=== PATIENT | female | born 1980 | race Caucasian/White ===

== ENCOUNTER → 2018-04-21 | Outpatient (CLI) | payer MEDICAID ==
--- NOTE | 2018-04-21 14:13 | MM ---
Reason for exam: screening (asymptomatic). Baseline mammogram. Physical Findings: Nurse did not find any significant physical abnormalities on exam. MG 3D Screening Mammo W/Cad Bilateral CC and MLO view(s) were taken. The breast tissue is heterogeneously dense. This may lower the sensitivity of mammography. Finding: There is a equal spiculated architectural distortion located 3.4cm from the nipple in the anterior position of the left breast on CC view. These results were verbally communicated with the patient and result sheet given to the patient on 04/21/18. ASSESSMENT: Incomplete: need additional imaging evaluation, BI-RAD 0 RECOMMENDATION: Special view mammogram of the left breast.
--- NOTE | 2018-04-21 14:18 | MM ---
Reason for exam: additional evaluation requested from abnormal screening. Physical Findings: Breast exam preformed at baseline screening. MG 3D Work Up W/Cad LT Spot compression CC and ML view(s) were taken of the left breast. The breast tissue is heterogeneously dense. This may lower the sensitivity of mammography. There is no discrete abnormality on compression or ML view. These results were verbally communicated with the patient and result sheet given to the patient on 04/21/18. ASSESSMENT: Probably benign, BI-RAD 3 RECOMMENDATION: Follow-up diagnostic mammogram of the left breast in 6 months.
== END | disposition home or self-care (01) ==
LOC: RADMAMWWP 12:54
PROVIDERS: ATTEND Internal Medicine Geriatric Medicine
DX: Z12.31 Encounter for screening mammogram for malignant neoplasm of breast (principal); R92.8 Other abnormal and inconclusive findings on diagnostic imaging of breast
CPT/HCPCS: 77061; 77063; 77065; 77067

== ENCOUNTER → 2018-11-16 | Outpatient (CLI) | payer MEDICAID ==
--- NOTE | 2018-11-16 09:33 | MM ---
Reason for exam: additional evaluation requested from prior study. Last mammogram was performed 7 months ago. Physical Findings: Nurse did not find any significant physical abnormalities on exam. MG 3D Diag Mammo W/Cad LT CC and MLO view(s) were taken of the left breast. Prior study comparison: April 21, 2018, left breast MG 3d work up w/cad LT. April 21, 2018, bilateral MG 3d screening mammo w/cad. The breast tissue is heterogeneously dense. This may lower the sensitivity of mammography. The previously seen abnormality resolves on additional views and appears as fibroglandular tissue compatible with summation on the left breast. No suspicious abnormality. These results were verbally communicated with the patient and result sheet given to the patient on 11/16/18. ASSESSMENT: Benign, BI-RAD 2 RECOMMENDATION: Return to routine screening mammogram schedule for both breasts. Back on schedule for March 2019.
== END | disposition home or self-care (01) ==
LOC: RADMAMWWP 08:08
PROVIDERS: ATTEND Internal Medicine
DX: R92.8 Other abnormal and inconclusive findings on diagnostic imaging of breast (principal)
CPT/HCPCS: 77061; 77065

== ENCOUNTER → 2020-09-05 | Outpatient (CLI) | payer MEDICAID ==
--- NOTE | 2020-09-05 16:21 | CT ---
EXAMINATION TYPE: CT iac wo con DATE OF EXAM: 09/05/2020 COMPARISON: None HISTORY: hearing loss, Mastoiditis CT DLP: 150mGycm Automated exposure control for dose reduction was used. Helical imaging obtained through the internal auditory canals FINDINGS: Lack of contrast to evaluate the internal auditory canals. The external auditory canals are patent bilaterally. Mastoid air cells show no evidence of abnormal opacification bilaterally. The middle ear ossicles are symmetric and unremarkable. There is no evidence of suspicious surrounding s oft tissue density to suggest cholesteatoma. The scutum is preserved bilaterally. The cochlea and t he semicircular canals are symmetric and unremarkable. Vestibular aqueduct and internal carotid miah l appear unremarkable. Temporomandibular joints are maintained bilaterally. Minimal inflammatory ch arlette noted in the dependent portions of the maxillary sinuses, there is mucoperiosteal thickening pre sent in the maxillary sinuses, uyen bullosa present on the right. Possible periapical abscess noted in the right maxilla, coronal image #22, axial image 19 IMPRESSION: No significant abnormality seen to account for patient's symptoms, noncontrast exam. Per iapical abscess suspected in the right maxilla.
== END | disposition home or self-care (01) ==
LOC: RADCTMAIN 12:19
PROVIDERS: ATTEND Otolaryngology
DX: H91.90 Unspecified hearing loss, unspecified ear (principal); K04.7 Periapical abscess without sinus
CPT/HCPCS: 70480

== ENCOUNTER → 2020-11-08 | Outpatient (CLI) | payer MEDICAID ==
--- NOTE | 2020-11-10 10:22 | MM ---
Reason for exam: screening (asymptomatic). Last mammogram was performed 2 years ago. History: Took hormonal contraceptives beginning at age 38. Physical Findings: A clinical breast exam by your physician is recommended on an annual basis and results should be correlated with mammographic findings. MG 3D Screening Mammo W/Cad Bilateral CC and MLO view(s) were taken. Prior study comparison: November 16, 2018, left breast MG 3d diag mammo w/cad LT. April 21, 2018, left breast MG 3d work up w/cad LT. The breast tissue is almost entirely fat. Asymmetric breast tissue in right posterior CC view, 13cm from nipple. ASSESSMENT: Incomplete: need additional imaging evaluation, BI-RAD 0 RECOMMENDATION: Special view mammogram of the right breast. If lesion persists on supplemental views, image directed ultrasound is recommended. [facility] will attempt to contact patient to return for supplemental views and ultrasound if indicated.
== END | disposition home or self-care (01) ==
LOC: RADMAMWWP 16:00
PROVIDERS: ATTEND Family Medicine
DX: Z12.31 Encounter for screening mammogram for malignant neoplasm of breast (principal)
CPT/HCPCS: 77063; 77067

== ENCOUNTER 2020-11-09 06:20 | Day surgery (SDC) | payer MEDICAID ==
[2020-11-08 10:12] VITALS: BMI 42.1
[~2020-11-09 06:20] MED LIST: DEXAMETHASONE SOD PHOSPHATE 4 MG/ML 1 ML VIAL IV PRN; FAMOTIDINE 20 MG/2 ML VIAL IV PRN; ONDANSETRON 4 MG/2 ML VIAL IVP PRN; OXYMETAZOLINE 0.05% NASL SPRAY 1 SPRAY BOTTLE EA NOSTRIL PRN
[2020-11-09] MEDS ORDERED: DEXAMETHASONE SOD PHOSPHATE 4 MG/ML 1 ML VIAL IV ONE (06:40)
[2020-11-09] MEDS ORDERED: LACTATED RINGERS 1,000 ML IV SCH (06:40)
[2020-11-09] MEDS ORDERED: LIDOCAINE 1% (10MG/ML) FOR IV START INTRADERMA PRN (06:40)
[2020-11-09] MEDS ORDERED: MIDAZOLAM 2 MG/2 ML VIAL IV PRN (06:40)
[2020-11-09] MEDS ORDERED: ONDANSETRON 4 MG/2 ML VIAL IVP ONE (06:40)
[2020-11-09 07:23] LABS: Glucose,Whole Blood 95 mg/dL (75-99)
[2020-11-09] MEDS ORDERED: MIDAZOLAM 2 MG/2 ML VIAL ONE (07:28)
[2020-11-09] MEDS ORDERED: fentaNYL (PF) 50 MCG/ML 2 ML AMP ONE (07:28)
[2020-11-09] MEDS ORDERED: SUCCINYLCHOLINE CHLORIDE VIAL 200 MG/10 ML VIAL IV ONE (07:28)
[2020-11-09] MEDS ORDERED: LIDOCAINE 1% INJ 10MG/ML (20 ML MDV) ONE (07:28)
[2020-11-09] MEDS ORDERED: PROPOFOL 10 MG/ML 20 ML VIAL IV ONE (07:28)
[2020-11-09 07:34] LABS: African American GFR (CKD) >90 (>60 ml/min/1.73 sqM); Anion Gap 2 mmol/L; Blood Urea Nitrogen 14 mg/dL (7-17); Calcium 8.8 mg/dL (8.4-10.2); Carbon Dioxide 29 mmol/L (22-30); Chloride 110 mmol/L (98-107); Glucose 102 mg/dL (74-99); Non-African American GFR(CKD) 80 (>60 ml/min/1.73 sqM); Potassium 3.7 mmol/L (3.5-5.1); Sodium 141 mmol/L (137-145)
[2020-11-09] MEDS ORDERED: LIDOCAINE 1%-EPI 1:100,000 20 ML VIAL SQ ONE ×2 (07:56)
[2020-11-09] MEDS ORDERED: CIPROFLOXACIN-DEXAMETH 0.3-0.1% DROPS 7.5 ML BTL BOTH EARS ONE (08:05)
[2020-11-09 08:40] VITALS: TEMP 97.1
--- NOTE | 2020-11-09 08:41 | P.OP ---
Date of Procedure: 11/09/20 Preoperative Diagnosis: Eustachian tube dysfunction cartilaginous bilateral, long-standing Chronic otitis media with effusion, bilateral Hypertrophy of inferior nasal turbinates Nasal obstruction Nasopharyngeal lymphoid growth Postoperative Diagnosis: Same Procedure(s) Performed: Endoscopic bilateral balloon eustachian tuboplasty Bilateral direct microscopic tympanostomy and tube placement Bilateral submucosal resection of the inferior nasal turbinates with outfracturing compression Endoscopic biopsy of nasopharyngeal lymphoid tissue Anesthesia: GETA Surgeon: Jovan Zapien Estimated Blood Loss (ml): 5 Pathology: other (Nasopharyngeal biopsy) Condition: stable Disposition: PACU Indications for Procedure: This patient presented to the office is a 40-year-old white female who had a CAT scan done demonstrating persistent eustachian tube dysfunction and chronic ear infections issues. She also has difficulty breathing through her nose and was found have large obstructive inferior turbinates and filled Flonase nasal therapy. She's failed medical therapy with antibiotics for her chronic ear issues and after long discussion she wishes to proceed forward with surgical resolution of her chronic issues. All risks, benefits, and alternative therapies were discussed. Consent was obtained and all questions were answered for the surgical procedure planned today. Operative Findings: Patient had an exuberant amount of lymphoid tissue in the nasopharynx which was biopsied. Patient had large obstructive inferior turbinates especially posteriorly putting anterior collapse on the eustachian tube bilaterally. Patient had adhesions of the eustachian tube along with a bilateral atrophic tympanic membrane is within middle ear effusion. Is was noted bilaterally. Description of Procedure: Patient was taken to the operative room and placed in the supine position. A general inhalation anesthetic was administered to the patient by mask and subsequently intubated with a cuffed endotracheal tube by the department of anesthesia with a functioning IV line in place. Patient was monitored throughout the entire case by the department of anesthesia. The nose was topically decongested with Afrin nasal spray. The inferior turbinates were injected with lidocaine 1% with epinephrine 1 100,000. Attention was paid to both ears. Both tympanic membranes were visualized with a 250 mm Zeiss microscope and both tympanic membranes were found to be severely atrophic along with severe retraction with a middle ear effusion bilaterally. A tympanostomy incision was made inferiorly and an ultraseal tube was placed bilaterally. Excellent tube placement was obtained and the fluid was suctioned from the middle ear. Ofloxacin drops were placed into the ear after tube placement. Attention was then paid to the nose were with use of a 0 Stacy natan endoscope we identified the eustachian tube orifices and placed in a clear balloon bilaterally and insufflated the eustachian tube in the standard fashion. After both eustachian tube orifices underwent balloon insufflation we then paid attention to the inferior turbinate. We entered the inferior turbinate with a 2 mm blade and did a submucosal resection of the inferior turbinate posteriorly as it abutted the anterior face of the eustachian tube. After bilateral submucosal resections were performed with removal of bone and submucosal material of the inferior turbinates posteriorly the inferior turbinates were then outfractured and compressed with a [employer] nasal elevator. Excellent results were obtained. We then identified a exuberant amount of lymphoid tissue in the nasopharynx which under direct observation utilizing a 0 Stacy natan scope and a [place], this tissue was biopsied and sent for pathology. The patient tolerated this procedure as well and was taken to postanesthesia recovery in excellent condition. Patient has a follow-up appointment next week.
[2020-11-09] MEDS: HYDROmorphone 0.5 MG/0.5 ML SYRINGE IVP PRN ×3 (08:48→09:35)
[2020-11-09] MEDS ORDERED: HYDROmorphone 0.5 MG/0.5 ML SYRINGE IVP ONE (08:59)
[2020-11-09] MEDS: hydrALAZINE HCL 20 MG/ML 1 ML VIAL IV ONE ×2 (09:12→09:45)
[2020-11-09 11:18] VITALS: BP 122/74; PULSE 88; RESP 16
== END 2020-11-09 11:15 | disposition home or self-care (01) ==
LOC: OR 06:20
PROVIDERS: ATTEND Otolaryngology
DX: H65.493 Other chronic nonsuppurative otitis media, bilateral (principal); J34.89 Other specified disorders of nose and nasal sinuses; I10 Essential (primary) hypertension; E66.9 Obesity, unspecified; F17.210 Nicotine dependence, cigarettes, uncomplicated; Z79.899 Other long term (current) drug therapy
CPT/HCPCS: 69436; 30130; 81025; 88305; 80048; C1726; J2250; J0330; J0360; J1100; J2405; J0690; J2001; J3010; J2704; J1170

== ENCOUNTER → 2020-11-21 | Outpatient (CLI) | payer MEDICAID ==
--- NOTE | 2020-11-22 09:31 | MM ---
Reason for exam: additional evaluation requested from abnormal screening. Last mammogram was performed less than 1 month ago. History: Took hormonal contraceptives beginning at age 38. Physical Findings: Nurse did not find any significant physical abnormalities on exam. MG 3D Work Up W/Cad RT CC and MLO view(s) were taken of the right breast. Prior study comparison: November 08, 2020, bilateral MG 3d screening mammo w/cad. November 16, 2018, left breast MG 3d diag mammo w/cad LT. There is no discrete abnormality including area of concern. These results were verbally communicated with the patient and result sheet given to the patient on 11/21/20. ASSESSMENT: Probably benign, BI-RAD 3 RECOMMENDATION: Follow-up diagnostic mammogram of the right breast in 6 months.
== END | disposition home or self-care (01) ==
LOC: RADMAMWWP 15:05
PROVIDERS: ATTEND Family Medicine
DX: Z79.899 Other long term (current) drug therapy (principal)
CPT/HCPCS: 77061; 77065